=== PATIENT | female | born 1980 | race Caucasian/White ===

== ENCOUNTER → 2023-05-26 | Outpatient (CLI) | payer MEDICAID, SELFPAY ==
[2023-05-26 15:45] LABS: Mucous, Urine 0 SEEN /hpf (<or=2+); Red Blood Cells-Urine 0 SEEN /hpf (0-5); Squamous Epithelial Cells - UA 0 SEEN /hpf (5-10)
[2023-05-26 17:35] LABS: Color, Urine Yellow (Yellow); Glucose, Dipstick 1000 mg/dl (Normal); Ketone-Dipstick Negative (Negative); Leukocyte Esterase-Dipstick Negative /ul (Negative); Nitrite-Dipstick Negative (Negative); Occult Blood-Urine Negative /ul (Negative); Protein-Dipstick Negative (Negative); Specific Gravity, Urine 1.015 (1.002-1.030); Urine Bilirubin Dipstick Negative (Negative); Urine Clarity Clear (Clear); Urine Urobilinogen Normal (Normal); Urine pH 6.5 (5.0 - 8.0)
[2023-05-26 18:28] LABS: Bacteria RARE /hpf (None Seen); White Blood Cells 0-5 SEEN /hpf (0-5)
== END | disposition home or self-care (01) ==
PROVIDERS: Visit Provider Physician Assistant Surgical
DX: R30.0 Dysuria (principal)
CPT/HCPCS: 81001; 87086; 87088

== ENCOUNTER 2024-02-02 13:48 | Emergency (ER) | payer MEDICAID, SELFPAY ==
[2024-02-02 13:49] VITALS: BP 112/72; PULSE 110; RESP 14; TEMP 36.6; O2SAT 95; BMI 30.7
--- NOTE | 2024-02-02 14:14 | RAD_ITS ---
STUDY: X-RAY CHEST REASON FOR EXAM: Female, 43 years old. Cough. Increasing shortness of breath and chest tightness. TECHNIQUE: PA and lateral views of the chest. COMPARISON: None. FINDINGS: Focal infiltrate in the right middle lobe. There is no demonstrated pleural abnormality. Normal size heart. Normal mediastinum and shar. Normal visualized pulmonary arteries. Normal visualized aortic arch and descending thoracic aorta. Normal visualized thoracic spine. Normal visualized ribs, clavicles, and shoulders. There is no demonstrated abnormality of the visualized soft tissue structures of the upper abdomen. RAD/Chest PA and Lateral IMPRESSION: Focal infiltrate in the right middle lobe. Electronically Signed: Stan Aburto MD at 15:00 EDT ,
--- NOTE | 2024-02-02 14:17 | EX.ED.DYSGE1 ---
HPI <JOSELITO Louis - Last Filed: 02/02/24 15:14> History of Present Illness Chief Complaint: Shortness of Breath Narrative Narrative: Patient is a 43-year-old female with history of hypothyroidism, diabetes however she does not take any medications for the last 5 years presents to the emergency department for 2 days of generalized cough, congestion, feeling of chest tightness. Patient states that she sleeps with her 5-year-old who is also being treated for an ear infection at this time. Patient states she is coughing, feeling tight in the chest however nothing is coming up. She denies any fever chills nausea or vomiting. 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, pre-employment Home Medications fluconazole 150 mg tablet (Diflucan) 150 mg PO Q3D 2 doses #2 tabs 05/26/23 [Rx Last Taken Unknown] amoxicillin 875 mg-potassium clavulanate 125 mg tablet 1 tab PO BID #20 tabs 02/02/24 [Rx Last Taken Unknown] Allergy/AdvReac Type Severity Reaction Status Date / Time lavender (Lavandula Allergy Intermediate Rash Verified 02/02/24 13:53 angustifolia) sulfamethoxazole AdvReac Mild Nausea Verified 02/02/24 13:53 [From Bactrim] trimethoprim [From Bactrim] AdvReac Mild Nausea Verified 02/02/24 13:53 Fish Containing Products AdvReac Nausea/Vom/ Verified 02/02/24 13:53 Diarrhea Social History Smoking Status: Never smoker ROS <JOSELITO Louis - Last Filed: 02/02/24 15:14> ROS ED ROS Narrative Constitutional: Negative for fever, chills, weight loss, weakness Eyes: Negative for vision loss, vision change, double vision ENT: Negative for any sore throat, ear pain, congestion Cardiovascular: Negative for any chest pain, tightness, palpitations Respiratory: Negative for any sputum production, hemoptysis, dyspnea on exertion, orthopnea. Positive cough, dyspnea Gastrointestinal: Negative for any abdominal pain, nausea, vomiting, diarrhea, constipation, blood in stool, blood in vomit : Negative for any urinary frequency, dysuria, retention, blood in urine Muscle skeletal: Negative for any neck pain, back pain Neurological: Negative for any headache, syncope, dizziness Skin: Negative for any rashes, itching, abrasions, lacerations Psychiatric: Negative for any depression, anxiety, stress, suicidal ideation, homicidal ideation Hematologic: Negative for any excessive bruising, easy bleeding EXAM <Shaquille Cherry NP-C - Last Filed: 02/02/24 15:14> Physical Exam Narrative Exam Narrative: Vital signs reviewed. HEET: Head normocephalic atraumatic, TMs clear bilaterally. Posterior pharynx is clear, moist mucous membranes. Nares clear bilaterally. Neck: Supple with no lymphadenopathy or tenderness. No signs of meningismus. Cardiac: Regular rate and rhythm no murmurs gallops or rubs, equal peripheral pulses bilaterally. Respiratory: Lungs clear to auscultation bilaterally. No chest tenderness. Abdomen: Soft, nontender, nondistended. No abdominal bruit or pulsatile masses. No hepatosplenomegaly Extremities: No peripheral edema, no signs of gross trauma or deformity. Active full range of motion of all extremities. Neuro: Cranial nerves II through XII intact, no focal neurological deficits. Skin: Clean dry and intact with no rash, purpura, petechiae, vesicles or pustules. Backs/flank: No CVA tenderness, no midline spinal tenderness, no deformity. Psych: Normal mood and affect. No SI, HI or acute psychosis. Const Vital Signs: 02/02/24 13:49 02/02/24 14:28 02/02/24 14:49 Temperature 97.9 F 97.4 F L Temperature Source Temporal Oral Pulse Rate 110 H 85 67 Respiratory Rate 14 18 15 Respiratory Effort Respiratory Depth Respiratory Pattern Normal Blood Pressure 112/72 138/71 H Blood Pressure Mean 85 93 Pulse Ox 95 97 Oxygen Delivery Method Room Air Room Air 02/02/24 15:11 02/02/24 15:00 02/02/24 15:21 Temperature 98.1 F Temperature Source Pulse Rate 109 H 100 Respiratory Rate 16 20 H Respiratory Effort Normal Non-Labored Respiratory Depth Normal Respiratory Pattern Normal Blood Pressure 109/65 125/74 H Blood Pressure Mean 79 91 Pulse Ox 91 97 Oxygen Delivery Method Room Air Room Air Positive well nourished and well developed General Appearance ED: well developed <Dr. Raghav Swan, DO - Last Filed: 02/02/24 17:40> Physical Exam Const Vital Signs: 02/02/24 13:49 02/02/24 14:28 02/02/24 14:49 Temperature 97.9 F 97.4 F L Temperature Source Temporal Oral Pulse Rate 110 H 85 67 Respiratory Rate 14 18 15 Respiratory Effort Respiratory Depth Respiratory Pattern Normal Blood Pressure 112/72 138/71 H Blood Pressure Mean 85 93 Pulse Ox 95 97 Oxygen Delivery Method Room Air Room Air 02/02/24 15:11 02/02/24 15:00 02/02/24 15:21 Temperature 98.1 F Temperature Source Pulse Rate 109 H 100 Respiratory Rate 16 20 H Respiratory Effort Normal Non-Labored Respiratory Depth Normal Respiratory Pattern Normal Blood Pressure 109/65 125/74 H Blood Pressure Mean 79 91 Pulse Ox 91 97 Oxygen Delivery Method Room Air Room Air MDM <Shaquille Cherry [employer] PERSONJessicaC - Last Filed: 02/02/24 15:14> MDM Radiography Diagnostic Testing: Clinical Impression(s) from Imaging Studies Chest X-Ray 02/02/24 14:14 IMPRESSION: Focal infiltrate in the right middle lobe. Electronically Signed: Stan Aburto MD at 15:00 EDT , EKG Sinus tachycardia: Attestation: I personally reviewed and interpreted this EKG as follows: Comments: Sinus tachycardia, rate 101 bpm, OH interval 194 ms, no acute ST elevation, no acute infarct noted. Treatment and Re-Evaluation :: Differential diagnosis includes however is not limited to: Community-acquired pneumonia, ACS, MA, viral syndromes such as COVID-19, influenza, RSV, reactive airway disease, bronchitis Patient appears to be in no obvious respiratory distress, patient is resting comfortably. Patient presents to the emergency department complaints of cough, generalized malaise, feeling short of breath over the last 1.5 days. She is currently close with her son who is 5 and has an ear infection. Patient did state that she does not want any blood work or her blood sugar checked. Patient will receive a two-view chest x-ray as well as a COVID/RSV/influenza patient be given breathing treatments. All radiologic examinations were read, reviewed by the emergency department attending. From these reads, a plan of care will be put in place. Patient be reevaluated Patient's respiratory panel was negative for any COVID-19 influenza or RSV. Patient's 2 view chest x-ray interpreted by ER physician shows a focal infiltrate in the right middle lobe. This does explain the patient's shortness of breath, as well as cough. Patient be treated with Augmentin twice a day for 10 days. She will follow-up outpatient with her PCP. I will refer her to a new PCP, all questions were answered, patient struck to return for any worsening symptoms such as shortness of breath, fever chills nausea or vomiting. <Dr. Raghav Swan, DO - Last Filed: 02/02/24 17:40> MDM Radiography Diagnostic Testing: Clinical Impression(s) from Imaging Studies Chest X-Ray 02/02/24 14:14 IMPRESSION: Focal infiltrate in the right middle lobe. Electronically Signed: Stan Aburto MD at 15:00 EDT , Treatment and Re-Evaluation :: Differential diagnosis includes however is not limited to: Community-acquired pneumonia, ACS, MA, viral syndromes such as COVID-19, influenza, RSV, reactive airway disease, bronchitis Patient appears to be in no obvious respiratory distress, patient is resting comfortably. Patient presents to the emergency department complaints of cough, generalized malaise, feeling short of breath over the last 1.5 days. She is currently close with her son who is 5 and has an ear infection. Patient did state that she does not want any blood work or her blood sugar checked. Patient will receive a two-view chest x-ray as well as a COVID/RSV/influenza patient be given breathing treatments. All radiologic examinations were read, reviewed by the emergency department attending. From these reads, a plan of care will be put in place. Patient be reevaluated Patient's respiratory panel was negative for any COVID-19 influenza or RSV. Patient's 2 view chest x-ray interpreted by ER physician shows a focal infiltrate in the right middle lobe. This ED attending note: I evaluated the patient in conjunction with the REBECA. I agree with his/her statements and above findings. I have personally performed a face to face assessment of the patient and have reviewed the [facility] Note. I performed a substantive portion of the visit including all aspects of the following. I personally saw the patient performed chart review, physical exam, reviewed labs, imaging (if obtained), and formulated a treatment and management plan. This note was generated with [employer] dictation software. It may contain incorrect words, spelling, and punctuation that were not noted in review of the chart prior to signing. Does explain the patient's shortness of breath, as well as cough. Patient be treated with Augmentin twice a day for 10 days. She will follow-up outpatient with her PCP. I will refer her to a new PCP, all questions were answered, patient struck to return for any worsening symptoms such as shortness of breath, fever chills nausea or vomiting. Discharge Plan Triage Chief Complaint: Shortness of Breath ED Midlevel Provider: Shaquille Cherry ED Provider: Raghav Swan Dx/Rx/DC Orders Clinical Impression: Community acquired pneumonia Instructions: ED Pneumonia (Adult) Prescriptions: New amoxicillin-pot clavulanate 875-125 mg tablet 1 tab PO BID Qty: 20 0RF No Action fluconazole [Diflucan] 150 mg tablet 150 mg PO Q3D Qty: 2 0RF Rx Instructions: may repeat second dose 72 hrs after first dose if symptoms persist Primary Care Provider: Care Physician,No Primary Referrals: Samreen Salcido DO [Med Staff - Secondary Teacher] - NOT,DEFINED [Non-Staff] - Activity Restrictions/Additional Instructions: Please take the antibiotics until finished. You had pneumonia to the right middle lobe. Return for worsening pain, fever chills nausea vomiting. Disposition Disposition: Home, Self Care Discharge Date/Time: 02/02/24 15:22
--- NOTE | 2024-02-02 14:18 | EKG12_ITS ---
Test Reason : SOB Blood Pressure : / mmHG Vent. Rate : 101 BPM Atrial Rate : 101 BPM P-R Int : 194 ms QRS Dur : 086 ms QT Int : 364 ms P-R-T Axes : 036 042 039 degrees QTc Int : 471 ms Sinus tachycardia Nonspecific T wave abnormality Abnormal ECG Confirmed by JANICE CONRAD, NASIM ([id number]), slot editor TYLER GOTTI ([id number] on 02/05/2024 9:35:35 AM Referred By: AARTI Confirmed By:NASIM CAMACHO MD
[2024-02-02] MEDS: Acetaminophen 500 MG Tablet 1000 MG PO (14:23)
[2024-02-02] MEDS: Albuterol 2.5 MG/3 ML VIAL.NEB. INHALATION (14:27)
[2024-02-02] MEDS: Ipratropium/Albuterol Sulfate 3 ML AMPUL.NEB INHALATION (14:27)
[2024-02-02 14:28] VITALS: PULSE 85; RESP 18
[2024-02-02 14:49] VITALS: BP 138/71; PULSE 67; RESP 15; TEMP 36.3; O2SAT 97
[2024-02-02 15:00] VITALS: BP 109/65; PULSE 109; RESP 16; O2SAT 91
[2024-02-02 15:11] VITALS: O2SAT 97
[2024-02-02] MEDS: Amox/Clavulanate 875 MG Tablet PO (15:19)
[2024-02-02 15:21] VITALS: BP 125/74; PULSE 100; RESP 20; TEMP 36.7; O2SAT 97
== END 2024-02-02 15:22 | disposition home or self-care (01) ==
PROVIDERS: Emergency Provider Emergency Medicine; Visit Provider Emergency Medicine
DX: J18.9 Pneumonia, unspecified organism (principal); E11.9 Type 2 diabetes mellitus without complications; E03.9 Hypothyroidism, unspecified
CPT/HCPCS: 71046; 87631; 93005; 94640; 99283